=== PATIENT | male | born 1980 | race Caucasian/White ===

== ENCOUNTER 2018-11-21 20:11 | Emergency (ER) | payer SELFPAY ==
[~2018-11-21] VITALS: Ht 170.2 cm; Wt 92.1 kg
[2018-11-21 20:26] VITALS: Ht 170.2 cm; Wt 92.1 kg
[2018-11-21 21:04] VITALS: BP 111/73
== END 2018-11-21 21:03 | disposition home or self-care (01) ==
LOC: ED 20:11
DX: J06.9 Acute upper respiratory infection, unspecified (principal); R09.82 Postnasal drip